=== PATIENT | male | born 1980 | race Caucasian/White ===

== ENCOUNTER 2024-05-14 13:15 | Outpatient (CLI) | payer OTHER | END 2024-05-14 13:16 | disposition home or self-care (01) | LOC: BICMRI 13:15 | DX: S86.391A Other injury of muscle(s) and tendon(s) of peroneal muscle group at lower leg level, right leg, initial encounter (principal); M67.873 Other specified disorders of tendon, right ankle and foot; S93.491A Sprain of other ligament of right ankle, initial encounter ==